=== PATIENT | female | born 1975 | race Hispanic/Latino ===

== ENCOUNTER 2019-08-20 10:42 | Emergency (ER) | payer BC ==
[2019-08-20] MEDS ORDERED: ONDANSETRON 4 MG/2 ML VIAL ONE (11:13)
[2019-08-20] MEDS ORDERED: MORPHINE 2 MG/ML SYR ONE (11:13)
[2019-08-20] MEDS ORDERED: FAMOTIDINE 20 MG/2 ML VIAL IV ONE (11:13)
[2019-08-20] MEDS ORDERED: NA CHLORIDE 0.9% 1,000 ML ONE (11:13)
[2019-08-20 11:28] LABS: Absolute Lymphocytes (CBC) 1.8 K/uL (0.7-4.9); Basophils % 0.9 % (0-1.3); Hematocrit 38.8 % (36.0-45.0); Lymphocytes % 20.4 % (15.3-44.8); RBC Red Blood Cell Count 4.15 M/uL (3.86-4.86)
[2019-08-20 11:40] LABS: Albumin 4.2 g/dL (3.4-5.0); Bilirubin Direct 0.1 mg/dL (0-0.2); Bilirubin Total 0.3 mg/dL (0.2-1.0); Potassium 3.9 mmol/L (3.5-5.1); Protein, Total 8.3 g/dL (6.4-8.2)
--- NOTE | 2019-08-20 11:51 | RAD REPORT ---
EXAM DESCRIPTION: CT - Stone Protocol - 08/20/2019 11:39 am CLINICAL HISTORY: Left-sided flank pain, left lower quadrant pain COMPARISON: None. TECHNIQUE: Axial 5 mm thick images were obtained without oral or IV contrast. The [id number] span s the entirety of the system including uppermost abdomen and lung bases. All CT scans are performed using dose optimization technique as appropriate and may include automated exposure control or mA/KV adjustment according to patient size. FINDINGS: Mild hydronephrosis is present secondary to a 6 millimeter proximal left ureter stone. Fro m a KUB projection the obstructing calculus is superimposed or closely approximated to the lateral ma rgin L3 transverse process. Patient has several 3-5 mm nonobstructing calyx calculi on the left. No r ight-sided hydronephrosis and no right-sided calculi. Remainder the left ureter is decompressed. Urin casey bladder is contracted. No bladder calculi seen. Patient has numerous pelvic floor phleboliths. No suspicious renal masses. Isodense masses and pyelonephritis are not excluded on a stone protocol CT scan. No significant adrenal finding. Imaged portions of the liver, spleen and pancreas show no suspicious findings on non-contrast imaging . No gallbladder or biliary tree abnormality identified. No suspicious bowel findings. Uterus is absent. Left ovary is not clearly defined and may be absent. Right ovary is prominent at approximately 3.7 cm. This is not outside of normal range. No hernia, mass or bulky lymphadenopathy noted. No free air, free fluid or inflammatory stranding. No significant bony abnormality. IMPRESSION: Mild left-sided hydronephrosis secondary to a proximal left ureter 6 mm stone. Patient h as additional 3-mm sized nonobstructing calyx calculi on the left. When viewed on a KUB projection the obstructing calculus is superimposed upon or closely approximated to the L3 transverse process. Isodense masses and pyelonephritis are not excluded on stone protocol technique.
[2019-08-20] MEDS ORDERED: CEFTRIAXONE/SWI 1gm 1 GM/10 ML SYR ONE (13:20)
[2019-08-20] MEDS ORDERED: MAGNESIUM SULFATE 1 gm IVPB 1 GM/100 ML BAG IV ONE (13:20)
[2019-08-20] MEDS ORDERED: TAMSULOSIN 0.4 MG SR CAP ONE (13:21)
--- NOTE | 2019-08-20 13:41 | ER ---
Nurse's Notes [facility] Name: Anushka Marshall Age: 44 yrs Sex: Female : 1975 Arrival Date: 08/20/2019 Time: 10:45 Bed 6 Private MD: Brandt Taylor B Diagnosis: Calculus of kidney and ureter-left Presentation: 08/20 10:58 Presenting complaint: Patient states: left low back pain radiating to LLQ, nausea, iw vomiting, chills this a.m, denies pain with urination, denies hx of kidney stones. Transition of care: patient was not received from another setting of care. Onset of symptoms was August 20, 2019. Risk Assessment: Do you want to hurt yourself or someone else? Patient reports no desire to harm self or others. Initial Sepsis Screen: Does the patient meet any 2 criteria? No. Patient's initial sepsis screen is negative. Does the patient have a suspected source of infection? No. Patient's initial sepsis screen is negative. Care prior to arrival: None. 10:58 Method Of Arrival: Wheelchair iw 10:58 Acuity: KEVIN 3 iw Historical: - Allergies: 10:59 No Known Allergies; iw - Home Meds: 10:59 None [Active]; iw - PMHx: 10:59 None; iw - PSHx: 10:59 Tubal ligation; Hysterectomy; iw - Social history:: Smoking status: . - Ebola Screening: : Patient negative for fever greater than or equal to 101.5 degrees Fahrenheit, and additional compatible Ebola Virus Disease symptoms Patient denies exposure to infectious person Patient denies travel to an Ebola-affected area in the 21 days before illness onset No symptoms or risks identified at this time. Screenin:05 Abuse screen: Denies threats or abuse. Denies injuries from another. Nutritional sv screening: No deficits noted. Tuberculosis screening: No symptoms or risk factors identified. Fall Risk None identified. Assessment: 11:05 General: Appears in no apparent distress. uncomfortable, well developed, Behavior is sv cooperative, anxious, restless. Pain: Complains of pain in posterior aspect of left lateral abdomen and anterior aspect of left lateral abdomen Pain currently is 10 out of 10 on a pain scale. Quality of pain is described as sharp, stabbing, Pain began 4 hours ago. Is continuous. Neuro: Level of Consciousness is awake, alert, obeys commands, Oriented to person, place, time, situation, Moves all extremities. Full function Gait is steady. Respiratory: Airway is patent Respiratory effort is even, unlabored, Respiratory pattern is regular, symmetrical. GI: Abdomen is flat, Reports nausea, vomiting. Derm: Skin is pink, warm \T\ dry. 12:00 Reassessment: Patient appears in no apparent distress at this time. Patient and/or sv family updated on plan of care and expected duration. Pain level reassessed. Patient is alert, oriented x 3, equal unlabored respirations, skin warm/dry/pink. Patient denies pain at this time. Patient states feeling better. Patient states symptoms have improved. 13:15 Reassessment: Patient appears in no apparent distress at this time. Patient and/or sv family updated on plan of care and expected duration. Pain level reassessed. Patient is alert, oriented x 3, equal unlabored respirations, skin warm/dry/pink. 14:22 Reassessment: Patient appears in no apparent distress at this time. Patient and/or sv family updated on plan of care and expected duration. Pain level reassessed. Patient is alert, oriented x 3, equal unlabored respirations, skin warm/dry/pink. Patient denies pain at this time. Patient states feeling better. Patient states symptoms have improved. Vital Signs: 11:00 Pulse 90; Resp 20; Pulse Ox 100% ; sv 12:45 BP 121 / 75; Pulse 79; Resp 16; Pulse Ox 98% ; sv 13:30 BP 132 / 87; Pulse 92; Resp 16; Pulse Ox 100% ; sv 14:22 BP 141 / 95; Pulse 87; Resp 17; Pulse Ox 97% ; sv ED Course: 10:45 Patient arrived in ED. am2 10:45 Brandt Taylor MD is Private Physician. am2 10:54 Mumtaz Plascencia PA is PHCP. cp 10:54 Tuan Ramos MD is Attending Physician. cp 10:58 Nciole Agarwal RN is Primary Nurse. sv 10:59 Triage completed. iw 10:59 Arm band placed on. sv 11:05 Patient has correct armband on for positive identification. Bed in low position. Call sv light in reach. Pulse ox on. NIBP on. Door closed. Warm blanket given. Head of bed elevated. 11:05 Inserted saline lock: 20 gauge in right antecubital area, using aseptic technique. sv Blood collected. Flushed right antecubital with 5 ml normal saline. 11:[address] via wheelchair. sv 12:43 Basic Metabolic Panel Sent. sv 12:43 CBC with Diff Sent. sv 12:43 Creatinine for Radiology Sent. sv 12:43 Hepatic Function Sent. sv 12:43 Lipase Sent. sv 12:44 CT Stone Protocol Sent. sv 13:39 Venecia Brasher MD is Referral Physician. cp 14:25 No provider procedures requiring assistance completed. IV discontinued, intact, sv bleeding controlled, No redness/swelling at site. Pressure dressing applied. Administered Medications: 11:20 Drug: Zofran 4 mg Route: IVP; Site: right antecubital; sv 12:00 Follow up: Response: No adverse reaction sv 11:20 Drug: NS 0.9% 1000 ml Route: IV; Rate: 100 ml/hr; Site: right antecubital; sv 11:21 Drug: Pepcid 20 mg Route: IVP; Site: right antecubital; sv 12:00 Follow up: Response: No adverse reaction sv 11:21 Drug: morphine 2 mg Route: IVP; Site: right antecubital; sv 12:00 Follow up: Response: No adverse reaction; Pain is decreased sv 13:27 Drug: Flomax 0.4 mg Route: PO; sg 14:21 Follow up: Response: No adverse reaction sv 13:27 Drug: Magnesium Sulfate 1 grams Route: IVPB; Infused Over: 20 mins; Site: right sg antecubital; 14:21 Follow up: Response: No adverse reaction; IV Status: Completed infusion; IV Intake: sv 100ml 13:27 Not Given (Other Intervention Used): Rocephin - (cefTRIAXone) 1 grams IVPB once over 30 sg mins; (mix in 50 mL NS) 13:27 Drug: Rocephin 1 grams Route: IV; Rate: calculated rate; Site: right antecubital; sg 13:30 Follow up: Response: No adverse reaction; IV Status: Completed infusion; IV Intake: 10mlsv Intake: 13:30 IV: 10ml; Total: 10ml. sv 14:21 IV: 100ml; Total: 110ml. sv Outcome: 13:40 Discharge ordered by . cp 14:25 Discharged to home ambulatory, with family. sv 14:25 Condition: stable 14:25 Condition: improved 14:25 Discharge instructions given to patient, Instructed on discharge instructions, follow up and referral plans. no drinking with medication, no driving heavy equipment, medication usage, increase fluids Demonstrated understanding of instructions, follow-up care, medications, Prescriptions given X 4. 14:25 Patient left the ED. sv Signatures: Nicole Agarwal RN RN sv Gay, Steven, RN RN sg Williams, Irene, RN RN Mumtaz Plascencia, PA PA Abbie Smith am2 Corrections: (The following items were deleted from the chart) 13:14 12:45 Pulse 79bpm; Resp 16bpm; Pulse Ox 98%; sv sv
--- NOTE | 2019-08-20 13:42 | EDPHYS ---
Physician Documentation [facility] Name: Anushka Marshall Age: 44 yrs Sex: Female : 1975 Arrival Date: 08/20/2019 Time: 10:45 Bed 6 Private MD: Brandt Taylor B ED Physician Tuan Ramos HPI: 08/20 11:05 This 44 yrs old Female presents to ER via Wheelchair with complaints of Flank cp Pain, Nausea. 11:05 The patient complains of pain in the left mid back. The pain radiates to the left side cp abdomen. Onset: The symptoms/episode began/occurred this morning. Associated signs and symptoms: Pertinent positives: nausea, vomiting, Pertinent negatives: diarrhea, dysuria, fever, pain radiating to the lower extremities. Severity of pain: in the emergency department the pain is unchanged despite home interventions. Historical: - Allergies: 10:59 No Known Allergies; iw - Home Meds: 10:59 None [Active]; iw - PMHx: 10:59 None; iw - PSHx: 10:59 Tubal ligation; Hysterectomy; iw - Social history:: Smoking status: . - Ebola Screening: : Patient negative for fever greater than or equal to 101.5 degrees Fahrenheit, and additional compatible Ebola Virus Disease symptoms Patient denies exposure to infectious person Patient denies travel to an Ebola-affected area in the 21 days before illness onset No symptoms or risks identified at this time. ROS: 11:06 Eyes: Negative for injury, pain, redness, and discharge. cp 11:06 Constitutional: Negative for body aches, chills, fever, poor PO intake. 11:06 ENT: Negative for drainage from ear(s), ear pain, sore throat, difficulty swallowing, difficulty handling secretions. 11:06 Cardiovascular: Negative for chest pain, edema, palpitations. 11:06 Respiratory: Negative for cough, shortness of breath, wheezing. 11:06 Abdomen/GI: Positive for nausea and vomiting, Negative for constipation, anorexia, black/tarry stool, rectal bleeding. 11:06 Back: Positive for flank pain, on the left. 11:06 : Negative for urinary symptoms. 11:06 Skin: Negative for rash. 11:06 Neuro: Negative for altered mental status, headache, syncope, weakness. 11:06 All other systems are negative. Exam: 11:08 Head/Face: Normocephalic, atraumatic. cp 11:08 Constitutional: The patient appears in no acute distress, alert, awake, non-toxic, well developed, well nourished, uncomfortable. 11:08 Eyes: Periorbital structures: appear normal, Conjunctiva: normal, no exudate, no injection, Sclera: no appreciated abnormality, Lids and lashes: appear normal, bilaterally. 11:08 ENT: External ear(s): are unremarkable, Nose: is normal, Mouth: Lips: moist, Oral mucosa: pink and intact, moist, Posterior pharynx: is normal, airway is patent, no erythema, no exudate. 11:08 Chest/axilla: Inspection: normal, Palpation: is normal, no crepitus, no tenderness. 11:08 Respiratory: the patient does not display signs of respiratory distress, Respirations: normal, no use of accessory muscles, no retractions, no splinting, no tachypnea, labored breathing, is not present, Breath sounds: are clear throughout, no decreased breath sounds, no stridor, no wheezing. 11:08 Abdomen/GI: Inspection: abdomen appears normal, Bowel sounds: active, all quadrants, Palpation: soft, in all quadrants, nontender, in all quadrants. 11:08 Back: CVA tenderness, is noted on the left. 11:08 Neuro: Orientation: to person, place \T\ time. Mentation: is normal, Motor: moves all fours, strength is normal, Sensation: is normal, Gait: is steady. Vital Signs: 11:00 Pulse 90; Resp 20; Pulse Ox 100% ; sv 12:45 BP 121 / 75; Pulse 79; Resp 16; Pulse Ox 98% ; sv 13:30 BP 132 / 87; Pulse 92; Resp 16; Pulse Ox 100% ; sv 14:22 BP 141 / 95; Pulse 87; Resp 17; Pulse Ox 97% ; sv MDM: 11:05 Patient medically screened. cp 11:30 Differential diagnosis: nephrolithiasis, pyelonephritis, UTI, diverticulitis, cp pancreatitis. 13:40 Data reviewed: vital signs, nurses notes, lab test result(s), radiologic studies, CT cp scan, and as a result, I will discharge patient. 13:40 Counseling: I had a detailed discussion with the patient and/or guardian regarding: the cp historical points, exam findings, and any diagnostic results supporting the discharge/admit diagnosis, radiology results, to return to the emergency department if symptoms worsen or persist or if there are any questions or concerns that arise at home. Response to treatment: the patient's symptoms have markedly improved after treatment. ED course: VSS. Pain markedly improved with meds. Will discharge to home for continued monitoring. 08/20 11:01 Order name: Basic Metabolic Panel 08/20 11:01 Order name: CBC with Diff 08/20 11:01 Order name: Creatinine for Radiology 08/20 11:01 Order name: Hepatic Function 08/20 11:01 Order name: Lipase 08/20 11:38 Order name: Creatinine (Radiology Only) EDCA 08/20 11:42 Order name: Basic Metabolic Panel [facility] 08/20 11:01 Order name: IV Saline Lock; Complete Time: 11:22 08/20 11:01 Order name: Labs collected and sent; Complete Time: 11:22 08/20 11:01 Order name: CT Stone Protocol 08/20 11:42 Order name: Liver (Hepatic) Function EDCA 08/20 11:43 Order name: Lipase [facility]CA 08/20 11:43 Order name: CBC with Automated Diff EDMS Administered Medications: 11:20 Drug: Zofran 4 mg Route: IVP; Site: right antecubital; sv 12:00 Follow up: Response: No adverse reaction sv 11:20 Drug: NS 0.9% 1000 ml Route: IV; Rate: 100 ml/hr; Site: right antecubital; sv 11:21 Drug: Pepcid 20 mg Route: IVP; Site: right antecubital; sv 12:00 Follow up: Response: No adverse reaction sv 11:21 Drug: morphine 2 mg Route: IVP; Site: right antecubital; sv 12:00 Follow up: Response: No adverse reaction; Pain is decreased sv 13:27 Drug: Flomax 0.4 mg Route: PO; sg 14:21 Follow up: Response: No adverse reaction sv 13:27 Drug: Magnesium Sulfate 1 grams Route: IVPB; Infused Over: 20 mins; Site: right sg antecubital; 14:21 Follow up: Response: No adverse reaction; IV Status: Completed infusion; IV Intake: sv 100ml 13:27 Not Given (Other Intervention Used): Rocephin - (cefTRIAXone) 1 grams IVPB once over 30 sg mins; (mix in 50 mL NS) 13:27 Drug: Rocephin 1 grams Route: IV; Rate: calculated rate; Site: right antecubital; sg 13:30 Follow up: Response: No adverse reaction; IV Status: Completed infusion; IV Intake: 10mlsv Disposition: 08/21 07:56 Co-signature as Attending Physician, Tuan Ramos MD I agree with the assessment and kdr plan of care. Disposition: 08/20/19 13:40 Discharged to Home. Impression: Calculus of kidney and ureter - left. - Condition is Stable. - Discharge Instructions: Kidney Stones. - Prescriptions for Tylenol- Codeine #3 300-30 mg Oral Tablet - take 2 tablets by ORAL route every 6 hours As needed; 20 tablet. Zofran 4 mg Oral Tablet - take 1 tablet by ORAL route every 12 hours As needed; 20 tablet. Flomax 0.4 mg Oral Capsule, Sust. Release 24 hr - take 1 capsule by ORAL route once daily As needed 1/2 hour following the same meal each day; 5 capsule. Cipro 500 mg Oral Tablet - take 1 tablet by ORAL route every 12 hours for 7 days; 14 tablet. - Work release form, Medication Reconciliation Form, Thank You Letter, Antibiotic Education, Prescription Opioid Use form. - Follow up: Venecia Brasher MD; When: 1 - 2 days; Reason: continued pain. - Problem is new. - Symptoms have improved. Signatures: Dispatcher [employer] Nicole Harper RN RN Daniel Copeland RN RN sg Rittger, Kevin, MD MD [facility] Isaura Shultz RN RN iw Page, Corey, PA PA cp Corrections: (The following items were deleted from the chart) 08/20 11:07 11:00 IV Saline Lock ordered. [facility] 11:07 11:00 Labs collected and sent ordered. [facility] 14:25 13:40 08/20/2019 13:40 Discharged to Home. Impression: Calculus of kidney and ureter - sv left. Condition is Stable. Forms are Medication Reconciliation Form, Thank You Letter, Antibiotic Education, Prescription Opioid Use. Follow up: Venecia Brasher; When: 1 - 2 days; Reason: continued pain. Problem is new. Symptoms have improved. cp
[2019-08-20 16:06] VITALS: BP 141/95; O2SAT 97
== END 2019-08-20 14:25 | disposition home or self-care (01) ==
LOC: ER 10:42
DX: N20.0 Calculus of kidney (principal); N20.1 Calculus of ureter
CPT/HCPCS: 96365; 85025; 80048; 36415; 80076; 83690; 76377; 74176; 96375; 99284; J3475; J2270; J0696; J7030; J2405

== ENCOUNTER 2020-12-26 09:01 | Emergency (ER) | payer BC ==
--- NOTE | 2020-12-26 09:50 | RAD REPORT ---
EXAM DESCRIPTION: RAD - Chest Single View - 12/26/2020 9:37 am CLINICAL HISTORY: COUGH Chest pain. COMPARISON: Abdomen 1 View (KUB) dated 09/07/2019; Abdomen 1 View (KUB) dated 09/01/2019; Chest Pa And Lat (2 Views) dated 08/26/2019 FINDINGS: Portable technique limits examination quality. The lungs are grossly clear. The heart is normal in size. No displaced fractures. IMPRESSION: No acute intrathoracic process suspected.
--- NOTE | 2020-12-26 10:47 | EDPHYS ---
Physician Documentation [facility] Name: Anushka Rogel Age: 45 yrs Sex: Female : 1975 Arrival Date: 12/26/2020 Time: 09:04 Bed 14 Private MD: ED Physician Dean Crisostomo HPI: 12/26 11:20 This 45 yrs old Female presents to ER via Ambulatory with complaints of Covid kb + Back/Side Pain, Cough. 11:20 The patient or guardian reports cough, that is intermittent, described as moderate. kb Onset: The symptoms/episode began/occurred 6 day(s) ago. Severity of symptoms: At their worst the symptoms were moderate, in the emergency department the symptoms are unchanged. Modifying factors: The symptoms are alleviated by nothing, the symptoms are aggravated by nothing. Associated signs and symptoms: The patient has no apparent associated signs or symptoms. The patient has not experienced similar symptoms in the past. The patient has not recently seen a physician. Pt reports she tested positive for covid on Saturday. States fever and chills have subsided, but cough has gotten worse. 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 - Social history:: Smoking status: Patient denies any tobacco usage or history of. ROS: 11:20 Constitutional: Negative for fever, chills, and weight loss, Cardiovascular: Negative kb for chest pain, palpitations, and edema, Abdomen/GI: Negative for abdominal pain, nausea, vomiting, diarrhea, and constipation, Back: Negative for injury and pain, MS/Extremity: Negative for injury and deformity, Skin: Negative for injury, rash, and discoloration, Neuro: Negative for headache, weakness, numbness, tingling, and seizure. 11:20 Respiratory: Positive for cough, Negative for dyspnea on exertion, hemoptysis, orthopnea, pleurisy, shortness of breath, sputum production, wheezing. Exam: 11:20 Constitutional: This is a well developed, well nourished patient who is awake, alert, kb and in no acute distress. Head/Face: Normocephalic, atraumatic. Chest/axilla: Normal chest wall appearance and motion. Nontender with no deformity. No lesions are appreciated. Cardiovascular: Regular rate and rhythm with a normal S1 and S2. No gallops, murmurs, or rubs. Normal PMI, no JVD. No pulse deficits. Respiratory: Lungs have equal breath sounds bilaterally, clear to auscultation and percussion. No rales, rhonchi or wheezes noted. No increased work of breathing, no retractions or nasal flaring. Abdomen/GI: Soft, non-tender, with normal bowel sounds. No distension or tympany. No guarding or rebound. No evidence of tenderness throughout. Back: No spinal tenderness. No costovertebral tenderness. Full range of motion. Skin: Warm, dry with normal turgor. Normal color with no rashes, no lesions, and no evidence of cellulitis. MS/ Extremity: Pulses equal, no cyanosis. Neurovascular intact. Full, normal range of motion. Neuro: Awake and alert, GCS 15, oriented to person, place, time, and situation. Cranial nerves II-XII grossly intact. Motor strength 5/5 in all extremities. Sensory grossly intact. Cerebellar exam normal. Normal gait. Vital Signs: 09:19 Pulse 100; Resp 16; Temp 98.8; Pulse Ox 97% on R/A; Weight 77.11 kg; Height 5 ft. 2 in. hb (157.48 cm); Pain 6/10; 09:19 Body Mass Index 31.09 (77.11 kg, 157.48 cm) hb MDM: 09:21 Patient medically screened. kb 10:44 Data reviewed: vital signs, nurses notes. Data interpreted: Pulse oximetry: on room air kb is 97 %. Interpretation: normal. Counseling: I had a detailed discussion with the patient and/or guardian regarding: the historical points, exam findings, and any diagnostic results supporting the discharge/admit diagnosis, lab results, radiology results, the need for outpatient follow up, a family practitioner, to return to the emergency department if symptoms worsen or persist or if there are any questions or concerns that arise at home. 12/26 10:33 Order name: Urine Dipstick--Ancillary (enter results) bd 12/26 09:22 Order name: Chest Single View XRAY kb 12/26 09:22 Order name: Urine Dipstick-Ancillary (obtain specimen); Complete Time: 09:43 kb 12/26 09:52 Order name: RAD; Complete Time: 09:53 EDMS Administered Medications: No medications were administered Disposition: 14:34 Co-signature as Attending Physician, Dean Crisostomo MD. rn Disposition: 12/26/20 10:46 Discharged to Home. Impression: Coronavirus infection, unspecified. - Condition is Stable. - Discharge Instructions: Viral Respiratory Infection, [id number], COVID-19. - Medication Reconciliation Form, Thank You Letter, Antibiotic Education, Prescription Opioid Use form. - Follow up: Emergency Department; When: As needed; Reason: Worsening of condition. Follow up: Private Physician; When: 2 - 3 days; Reason: Recheck today's complaints, Continuance of care, Re-evaluation by your physician. Signatures: Dispatcher [employer] EDMS Jaz Arreguin, CIARA-Angela CHIEF NURSE-Dean Lr MD MD rn Smirch, Shelby, RN RN ss Baxter, Heather, RN RN Corrections: (The following items were deleted from the chart) 10:59 10:46 12/26/2020 10:46 Discharged to Home. Impression: Coronavirus infection, ss unspecified. Condition is Stable. Forms are Medication Reconciliation Form, Thank You Letter, Antibiotic Education, Prescription Opioid Use. Follow up: Emergency Department; When: As needed; Reason: Worsening of condition. Follow up: Private Physician; When: 2 - 3 days; Reason: Recheck today's complaints, Continuance of care, Re-evaluation by your physician. kb 11:20 11:20 Constitutional: This is a well developed, well nourished patient who is awake, kb alert, and in no acute distress. Head/Face: Normocephalic, atraumatic. Chest/axilla: Normal chest wall appearance and motion. Nontender with no deformity. No lesions are appreciated. Cardiovascular: Regular rate and rhythm with a normal S1 and S2. No gallops, murmurs, or rubs. Normal PMI, no JVD. No pulse deficits. Respiratory: Lungs have equal breath sounds bilaterally, clear to auscultation and percussion. No rales, rhonchi or wheezes noted. No increased work of breathing, no retractions or nasal flaring. Abdomen/GI: Soft, non-tender, with normal bowel sounds. No distension or tympany. No guarding or rebound. No evidence of tenderness throughout. Skin: Warm, dry with normal turgor. Normal color with no rashes, no lesions, and no evidence of cellulitis. MS/ Extremity: Pulses equal, no cyanosis. Neurovascular intact. Full, normal range of motion. Neuro: Awake and alert, GCS 15, oriented to person, place, time, and situation. Cranial nerves II-XII grossly intact. Motor strength 5/5 in all extremities. Sensory grossly intact. Cerebellar exam normal. Normal gait. kb
--- NOTE | 2020-12-26 10:47 | ER ---
Nurse's Notes [facility] Name: Anushka Rogel Age: 45 yrs Sex: Female : 1975 Arrival Date: 12/26/2020 Time: 09:04 Bed 14 Private MD: Diagnosis: Coronavirus infection, unspecified Presentation: 12/26 09:19 Chief complaint: COVID + last Saturday, reports worsening cough and back pain. hb Coronavirus screen: Client reports previous positive COVID test result. Ebola Screen: No symptoms or risks identified at this time. Initial Sepsis Screen: Does the patient meet any 2 criteria? No. Patient's initial sepsis screen is negative. Does the patient have a suspected source of infection? No. Patient's initial sepsis screen is negative. Risk Assessment: Do you want to hurt yourself or someone else? Patient reports no desire to harm self or others. Onset of symptoms was December 21, 2020. 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 - Social history:: Smoking status: Patient denies any tobacco usage or history of. Screenin:25 Abuse screen: Denies threats or abuse. Nutritional screening: No deficits noted. tw2 Tuberculosis screening: No symptoms or risk factors identified. Fall Risk None identified. Assessment: 09:45 General: Appears in no apparent distress. comfortable, Behavior is calm, cooperative. ss Pain: Complains of pain in back Pain currently is 6 out of 10 on a pain scale. Neuro: Level of Consciousness is awake, alert, obeys commands, Oriented to person, place, time, situation, Passenger Relations Representative are equal bilaterally Moves all extremities. Full function Speech is normal, Facial symmetry appears normal. Cardiovascular: Capillary refill < 3 seconds is brisk in bilateral fingers. Respiratory: Airway is patent Respiratory effort is even, unlabored, Respiratory pattern is regular, symmetrical. Respiratory: Reports cough that is hacking, worse since last week. GI: No signs and/or symptoms were reported involving the gastrointestinal system. Patient currently denies abdominal pain, diarrhea, nausea, vomiting. : No signs and/or symptoms were reported regarding the genitourinary system. EENT: Nares are clear. Derm: Skin is intact, is healthy with good turgor, Skin is dry, Skin is pink, warm \T\ dry. normal. Musculoskeletal: Circulation, motion, and sensation intact. Range of motion: intact in all extremities, Swelling absent. 10:59 Reassessment: Patient appears in no apparent distress at this time. Patient and/or ss family updated on plan of care and expected duration. Pain level reassessed. Vital Signs: 09:19 Pulse 100; Resp 16; Temp 98.8; Pulse Ox 97% on R/A; Weight 77.11 kg; Height 5 ft. 2 in. hb (157.48 cm); Pain 610; 09:19 Body Mass Index 31.09 (77.11 kg, 157.48 cm) hb ED Course: 09:04 Patient arrived in ED. ds1 09:21 Triage completed. hb 09:21 [facility]reguin [facility]-C [facility]. kb 09:21 Dean Crisostomo MD is Attending Physician. kb 09:21 Arm band placed on. hb 09:22 Bed in low position. Call light in reach. Pulse ox on. NIBP on. tw2 09:38 Tiffanie Oneal, DEENA is Primary Nurse. ss 09:45 Urine collected: clean catch specimen, clear. ss 10:58 No provider procedures requiring assistance completed. Patient did not have IV access ss during this emergency room visit. Administered Medications: No medications were administered Outcome: 10:46 Discharge ordered by . kb 10:58 Discharged to home ambulatory. ss 10:58 Condition: good 10:58 Discharge instructions given to patient, Instructed on discharge instructions, follow up and referral plans. Demonstrated understanding of instructions, follow-up care. 10:59 Patient left the ED. ss Signatures: Jaz Arreguin FNP-C FNP-Lupe Burroughs ds1 Tiffanie Oneal, DEENA SHAFFER Gabriela Arce RN RN Chloe Sanders RN RN tw2
[2020-12-26 11:03] VITALS: TEMP 98.8; O2SAT 97
[2020-12-26 12:34] LABS: Urine Blood TRACE (NEG); Urine Glucose NEGATIVE (NEG); Urine Protein 2+ (NEG); Urine Specific Gravity 1.025 (1.005-1.030); Urine pH 6.5 (5.0-7.0)
== END 2020-12-26 10:59 | disposition home or self-care (01) ==
LOC: ER 09:01
DX: U07.1 COVID-19 (principal)
CPT/HCPCS: 71045; 81003; 99283

== ENCOUNTER 2021-01-15 16:48 | Emergency (ER) | payer BC ==
[2021-01-15 19:03] LABS: Urine Blood 3+ (NEG); Urine Glucose NEGATIVE (NEG); Urine Protein 2+ (NEG); Urine pH 5.5 (5.0-7.0)
[2021-01-15 19:32] LABS: Urine Bacteria <20 /HPF (<20); Urine RBC TNTC /HPF (NONE SEEN)
[2021-01-15 19:33] LABS: Absolute Lymphocytes (CBC) 1.8 K/uL (0.7-4.9); Basophils % 0.6 % (0-1.3); Hematocrit 35.1 % (36.0-45.0); Lymphocytes % 18.8 % (15.3-44.8); MPV 8.7 fL (7.6-11.3); RBC Red Blood Cell Count 3.77 M/uL (3.86-4.86)
[2021-01-15] MEDS ORDERED: CEFTRIAXONE/SWI 1gm 1 GM/10 ML SYR ONE (19:40)
[2021-01-15 19:50] LABS: ALT/SGPT 118 U/L (12-78); AST/SGOT 34 U/L (15-37); Albumin 3.5 g/dL (3.4-5.0); Alkaline Phosphatase 76 U/L (45-117); BUN Blood Urea Nitrogen 16 mg/dL (7-18); Bicarbonate 25 mmol/L (21-32); Bilirubin Direct < 0.1 mg/dL (0-0.2); Bilirubin Total 0.2 mg/dL (0.2-1.0); Glucose Level 107 mg/dL (74-106); Lipase 295 U/L (73-393); Potassium 3.6 mmol/L (3.5-5.1); Protein, Total 7.5 g/dL (6.4-8.2); Sodium Level 141 mmol/L (136-145)
--- NOTE | 2021-01-15 20:09 | RAD REPORT ---
EXAM DESCRIPTION: CT - Stone Protocol - 01/15/2021 7:33 pm CLINICAL HISTORY: Abdominal pain. Hematuria COMPARISON: 2018 TECHNIQUE: Computed axial tomography of the abdomen pelvis was obtained without oral or IV contrast. Lack of IV and oral contrast limits evaluation of solid organs, bowel, and vessels. Coronal reformat brissa images were obtained and reviewed. All CT scans are performed using dose optimization technique as appropriate and may include automated exposure control or mA/KV adjustment according to patient size. FINDINGS: Tiny right renal calculus. No hydronephrosis. Multiple small left renal calculi. No hydronephrosis. A ureteral calculus is not seen. A bladder calc ulus is not visualized. The liver, spleen, pancreas and adrenals appear grossly normal There is no evidence of diverticulitis. The appendix appears normal. Hysterectomy IMPRESSION: Multiple small nonobstructing left renal calculi. Tiny nonobstructing right renal calculus
--- NOTE | 2021-01-15 20:15 | ER ---
Nurse's Notes [facility] Name: Anushka Rogel Age: 45 yrs Sex: Female : 1975 Arrival Date: 01/15/2021 Time: 16:53 Bed 24 Private MD: Diagnosis: Urinary tract infection, site not specified;Dysuria;Hematuria, unspecified Presentation: 01/15 17:29 Chief complaint: Patient states: L back pain, bloody urine with clots in it, dysuria, ll1 and urinary frequency for 1 day. No fever. Coronavirus screen: Client denies travel out of the [place] in the last 14 days. At this time, the client does not indicate any symptoms associated with coronavirus-19. Ebola Screen: Patient denies travel to an Ebola-affected area in the 21 days before illness onset. Initial Sepsis Screen: Does the patient meet any 2 criteria? HR > 90 bpm. No. Patient's initial sepsis screen is negative. Does the patient have a suspected source of infection? Yes: Dysuria/Frequency/Urgency/UTI. Risk Assessment: Do you want to hurt yourself or someone else? Patient reports no desire to harm self or others. Onset of symptoms was January 15, 2021. 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 - Social history:: Smoking status: Patient denies any tobacco usage or history of. Screenin:11 Abuse screen: Denies threats or abuse. Denies injuries from another. Nutritional mg2 screening: No deficits noted. Tuberculosis screening: No symptoms or risk factors identified. Fall Risk None identified. Assessment: 19:10 General: Appears in no apparent distress. comfortable, Behavior is calm, cooperative. mg2 Pain: Complains of pain in abdomen Pain radiates to back. Neuro: Level of Consciousness is awake, alert, obeys commands, Oriented to person, place, time, situation. Cardiovascular: Capillary refill < 3 seconds Patient's skin is warm and dry. Respiratory: Airway is patent Respiratory effort is even, unlabored, Respiratory pattern is regular, symmetrical. GI: No signs and/or symptoms were reported involving the gastrointestinal system. : Reports pain lower quadrant(s) in lower back. : Reports discharge, bloody. EENT: No signs and/or symptoms were reported regarding the EENT system. Derm: Skin is intact, is healthy with good turgor, Skin is pink, warm \T\ dry. normal. Musculoskeletal: Circulation, motion, and sensation intact. Capillary refill < 3 seconds. 19:27 Reassessment: sent to ct scan via stretcher. mg2 20:21 Reassessment: Patient appears in no apparent distress at this time. Patient denies pain mg2 at this time. Patient states feeling better. Patient states symptoms have improved. Vital Signs: 17:29 BP 150 / 98; Pulse 99; Resp 17; Temp 98.4; Pulse Ox 99% ; Weight 75.75 kg; Height 5 ft. ll1 2 in. (157.48 cm); Pain 5/10; 19:26 BP 124 / 79; Pulse 88; Resp 18; Pulse Ox 100% ; mg2 20:21 BP 120 / 80; Pulse 80; Resp 18; Temp 98; Pulse Ox 100% on R/A; Pain 0/10; mg2 17:29 Body Mass Index 30.54 (75.75 kg, 157.48 cm) ll1 ED Course: 16:53 Patient arrived in ED. ds1 17:31 Triage completed. ll1 17:32 Arm band placed on. ll1 19:03 Martir Gonzalez, DEENA is Primary Nurse. mg2 19:05 Wade Rivera PA is PHCP. [facility] 19:05 Anselmo Grimm MD is Attending Physician. jmm 19:11 Patient has correct armband on for positive identification. mg2 19:11 No provider procedures requiring assistance completed. mg2 19:15 Inserted saline lock: 20 gauge in right antecubital area, using aseptic technique. mg2 Blood collected. 20:21 IV discontinued, intact, bleeding controlled, No redness/swelling at site. Pressure mg2 dressing applied. Administered Medications: 19:25 Drug: Rocephin - (cefTRIAXone) 1 grams Route: IVPB; Infused Over: 30 mins; Site: right mg2 antecubital; 20:16 Follow up: Response: No adverse reaction; IV Status: Completed infusion mg2 Outcome: 20:15 Discharge ordered by MD. jmm 20:21 Discharged to home ambulatory. mg2 20:21 Condition: stable 20:21 Discharge instructions given to patient, Instructed on discharge instructions, follow up and referral plans. medication usage, Demonstrated understanding of instructions, follow-up care, medications, Prescriptions given X 1. 20:21 Patient left the ED. mg2 Signatures: Wade Rivera PA PA jmm Sanford, Demi ds1 Martir Gonzalez RN RN mg2 Joseline Christensen RN RN ll1
--- NOTE | 2021-01-15 20:15 | EDPHYS ---
Physician Documentation [facility] Name: Anushka Rogel Age: 45 yrs Sex: Female : 1975 Arrival Date: 01/15/2021 Time: 16:53 Bed 24 Private MD: ED Physician Anselmo Grimm HPI: 01/15 19:17 This 45 yrs old Female presents to ER via Ambulatory with complaints of jmm Urinary Frequency, Blood In Urine. 19:17 The patient complains of pain in the left flank. Onset: The symptoms/episode jmm began/occurred gradually, 1 day(s) ago. Modifying factors: The symptoms are alleviated by nothing. the symptoms are aggravated by nothing. Associated signs and symptoms: Pertinent positives: dysuria, hematuria. The patient has experienced a previous episode. This is a 45 year old female with no chronic medical conditions that presents to the ED with complaints of left flank pain beginning around 1 day ago along with hematuria and painful urination. DIRECTOR LIFE: 20:21 LMP N/A - Hysterectomy mg2 Historical: - Allergies: 17:31 No Known Allergies; ll1 - PSHx: 17:31 Tubal ligation; Hysterectomy; ll1 - Immunization history:: Flu vaccine is up to date. - Social history:: Smoking status: Patient denies any tobacco usage or history of. ROS: 19:17 Constitutional: Negative for fever, chills, and weight loss, Cardiovascular: Negative jmm for chest pain, palpitations, and edema, Respiratory: Negative for shortness of breath, cough, wheezing, and pleuritic chest pain. 19:17 Abdomen/GI: Positive for abdominal pain. 19:17 : Positive for urinary symptoms, hematuria. 19:17 All other systems are negative. Exam: 19:17 Constitutional: This is a well developed, well nourished patient who is awake, alert, jmm and in no acute distress. Head/Face: atraumatic. Eyes: EOMI, no conjunctival erythema appreciated ENT: Moist Mucus Membranes Neck: Trachea midline, Supple Chest/axilla: Normal chest wall appearance and motion. Cardiovascular: Regular rate and rhythm. No edema appreciated Respiratory: Normal respirations, no respiratory distress appreciated Abdomen/GI: Non distended, soft 19:17 Skin: General appearance color normal MS/ Extremity: Moves all extremities, no obvious deformities appreciated, no edema noted to the lower extremities Neuro: Awake and alert, normal gait Psych: Behavior is normal, Mood is normal, Patient is cooperative and pleasant 19:17 Back: CVA tenderness, that is mild, is noted on the right. Vital Signs: 17:29 BP 150 / 98; Pulse 99; Resp 17; Temp 98.4; Pulse Ox 99% ; Weight 75.75 kg; Height 5 ft. ll1 2 in. (157.48 cm); Pain 5/10; 19:26 BP 124 / 79; Pulse 88; Resp 18; Pulse Ox 100% ; mg2 20:21 BP 120 / 80; Pulse 80; Resp 18; Temp 98; Pulse Ox 100% on R/A; Pain 0/10; mg2 17:29 Body Mass Index 30.54 (75.75 kg, 157.48 cm) ll1 MDM: 19:13 Patient medically screened. [facility] 20:12 Data reviewed: vital signs, nurses notes. Counseling: I had a detailed discussion with joan the patient and/or guardian regarding: the historical points, exam findings, and any diagnostic results supporting the discharge/admit diagnosis, lab results, radiology results, the need for outpatient follow up, to return to the emergency department if symptoms worsen or persist or if there are any questions or concerns that arise at home. ED course: Patient is alert and non toxic in appearance in the ED. No signs of resp distress. No signs of sepsis appreciated. Patient advised to follow up with pcp and otherwise given strict return precautions. Patient understood and agrees with the plan of care. . 01/15 18:53 Order name: Urine Microscopic Only 01/15 18:54 Order name: Urine Dipstick--Ancillary (enter results) [facility] 01/15 18:54 Order name: Urine --Ancillary (enter results) [facility] 01/15 19:04 Order name: Urine --Ancillary; Complete Time: 19:15 [facility] 01/15 19:04 Order name: Urine Dipstick-Ancillary; Complete Time: 19:15 [facility] 01/15 19:14 Order name: Basic Metabolic Panel [facility] 01/15 19:14 Order name: CBC with Diff [facility] 01/15 19:14 Order name: Hepatic Function [facility] 01/15 19:14 Order name: Lipase [facility] 01/15 19:32 Order name: Urine Microscopic Only; Complete Time: 19:34 [facility] 01/15 19:46 Order name: CBC with Automated Diff; Complete Time: 20:09 [facility] 01/15 19:50 Order name: Basic Metabolic Panel; Complete Time: 20:10 [facility] 01/15 19:50 Order name: Liver (Hepatic) Function; Complete Time: 20:10 [facility] 01/15 19:50 Order name: Lipase; Complete Time: 20:10 [facility] 01/15 19:14 Order name: IV Saline Lock; Complete Time: 19:21 [facility] 01/15 19:14 Order name: Labs collected and sent; Complete Time: 19:21 [facility] 01/15 19:14 Order name: CT Stone Protocol [facility] 01/15 20:10 Order name: CT; Complete Time: 20:11 EDMS Administered Medications: 19:25 Drug: Rocephin - (cefTRIAXone) 1 grams Route: IVPB; Infused Over: 30 mins; Site: right mg2 antecubital; 20:16 Follow up: Response: No adverse reaction; IV Status: Completed infusion mg2 Disposition: 01/15/21 20:15 Discharged to Home. Impression: Urinary tract infection, site not specified, Dysuria, Hematuria, unspecified. - Condition is Stable. - Discharge Instructions: Dysuria, Hematuria, Adult, Urinary Tract Infection, Adult. - Prescriptions for Cephalexin 500 mg Oral Capsule - take 1 capsule by ORAL route every 8 hours for 10 days; 30 capsule. - Medication Reconciliation Form, Thank You Letter, Antibiotic Education, Prescription Opioid Use form. - Follow up: Private Physician; When: 2 - 3 days; Reason: Recheck today's complaints, Continuance of care, Re-evaluation by your physician. Addendum: 01/20/2021 19:23 Co-signature as Attending Physician, Anselmo Grimm MD I agree with the assessment and t w4 plan of care. Signatures: Dispatcher [employer] [facility] Wade Rivera PA PA jmm Wadley, Terrence, MD MD tw4 Martir Gonzalez RN RN mg2 Joseline Christensen RN RN ll1 Corrections: (The following items were deleted from the chart) 01/15 20:21 20:15 01/15/2021 20:15 Discharged to Home. Impression: Urinary tract infection, site mg2 not specified; Dysuria; Hematuria, unspecified. Condition is Stable. Forms are Medication Reconciliation Form, Thank You Letter, Antibiotic Education, Prescription Opioid Use. Follow up: Private Physician; When: 2 - 3 days; Reason: Recheck today's complaints, Continuance of care, Re-evaluation by your physician. joan
[2021-01-15 20:27] VITALS: O2SAT 100
[2021-01-15 20:29] VITALS: BP 120/80; TEMP 98
== END 2021-01-15 20:21 | disposition home or self-care (01) ==
LOC: ER 16:48
DX: N39.0 Urinary tract infection, site not specified (principal); R31.9 Hematuria, unspecified
CPT/HCPCS: 96365; 87088; 85025; 87086; 80048; 36415; 81025; 80076; 83690; 76377; 74176; 99284; J0696; 81003; 81015

== ENCOUNTER 2021-12-21 12:20 | Emergency (ER) | payer BC ==
--- OUTSIDE RECORDS SUMMARY | 2021-12-21 12:22 | XMS REPORT | Continuity of Care Document ---
:1975 Author Organization [facility] t Address [address] [place] [address] Care Team Providers Name Role Phone Pcp, Does Not Have A Primary Care Physician Nurse, Polynda Immunization Attending Clinician Unavailable Mark Beasley DO Attending Clinician Problems This patient has no known problems. Allergies, Adverse Reactions, Alerts This patient has no known allergies or adverse reactions. Social History Social Habit Start Date Stop Date Quantity Comments Source Sex Assigned At [address] 1975 [facility] 00:00:00 00:00:00 [facility] Smoking Status Start Date Stop Date Source Unknown if ever smoked [facility] Medications This patient has no known medications. Immunizations Ordered Filled Immunization Date Status Comments Sourc e Immunization Name Name SARS-COV-2 COVID-2021-10-16 Completed Unive rs[facility] of PFIZER VACCINE 00:00:00 [facility] SARS-COV-2 COVID-19 2021-03-14 Completed Unive rsity of PFIZER VACCINE 00:00:00 [facility] SARS-COV-2 COVID-19 2021-02-21 Completed Unive rsity of PFIZER VACCINE 00:00:00 [facility] Procedures Procedure Date / Time Performed Performing Clinician Na chi SARS-COV-2 COVID-19 2021-10-16 15:27:18 Doctor Unassigned, No [facility] [place] VACC[facility],0.3ML,IM Name [facility] (PFIZER) Encounters Start End Encounter Admission Attending Care Care Encounter Source Date/Time Date/Time Type Type Clinicians Facility Department ID 2021-10-16 2021-10-16 Imm/Inj Nurse, Julee Pob Immunization [facility] [id number] [facility] 09:01:19 09:01:32 Visit Santosh Beasley [id number] ity HAY [id number] Amandeep zaragoza PROFESSIO [id number] [facility] [address] Results This patient has no known results.
[2021-12-21] MEDS ORDERED: MORPHINE 4 MG/ML SYR ONE (12:59)
[2021-12-21] MEDS ORDERED: ONDANSETRON 4 MG/2 ML VIAL ONE (13:00)
[2021-12-21] MEDS ORDERED: NA CHLORIDE 0.9% 1,000 ML ONE (13:00)
[2021-12-21 13:02] LABS: Hematocrit 41.8 % (36.0-45.0); Lymphocytes % 33.3 % (15.3-44.8); MPV 8.5 fL (7.6-11.3); RBC Red Blood Cell Count 4.47 M/uL (3.86-4.86)
[2021-12-21 13:22] LABS: ALT/SGPT 46 U/L (12-78); AST/SGOT 26 U/L (15-37); Albumin 4.2 g/dL (3.4-5.0); Alkaline Phosphatase 64 U/L (45-117); BUN Blood Urea Nitrogen 18 mg/dL (7-18); Bicarbonate 25 mmol/L (21-32); Bilirubin Direct < 0.1 mg/dL (0-0.2); Bilirubin Total 0.5 mg/dL (0.2-1.0); Glucose Level 101 mg/dL (74-106); Lipase 151 U/L (73-393); Potassium 3.6 mmol/L (3.5-5.1); Protein, Total 8.6 g/dL (6.4-8.2); Sodium Level 138 mmol/L (136-145)
[2021-12-21 14:06] LABS: SARS-COV-2 RT PCR NEGATIVE (NEGATIVE)
[2021-12-21 14:08] LABS: Urine Blood 3+ (Negative); Urine Glucose Negative (Negative); Urine Protein 1+ (Negative)
--- NOTE | 2021-12-21 14:50 | RAD REPORT ---
EXAM DESCRIPTION: CT - Stone Protocol - 12/21/2021 2:35 pm CLINICAL HISTORY: Flank pain. left flank pain COMPARISON: Stone Protocol dated 01/15/2021 TECHNIQUE: Axial images were obtained without oral or IV contrast. Lack of contrast limits solid org an and vascular assessment. The [id number] spans the entirety of the system partially obscuring uppermost abdomen and lung bases. Coronal reformatted images were obtained and reviewed. All CT scans are performed using dose optimization technique as appropriate and may include automated exposure control or mA/KV adjustment according to patient size. FINDINGS: The lower lung perez are clear. Imaged portions of the liver and spleen show no suspicious findings on non-contrast imaging. The panc reas and adrenal glands are normal. No pathologic lymphadenopathy in the abdomen or pelvis. 5 mm stone is present proximal left ureter resulting in mild left hydronephrosis. Several additional left renal calculi are seen. No right-sided stone or hydronephrosis evident. No bowel obstruction, free air, intra-abdominal free fluid or abscess. Trace pelvic free fluid. Kyra l appendix noted. No significant bony abnormality. IMPRESSION: 5 mm stone proximal left ureter resulting in mild left hydronephrosis. Additional left nephrolithiasis.
--- NOTE | 2021-12-21 16:08 | ER ---
Nurse's Notes [facility] Name: Anushka Rogel Age: 46 yrs Sex: Female : 1975 Arrival Date: 12/21/2021 Time: 12:23 Bed 28 Private MD: Diagnosis: Calculus of ureter Presentation: 12/21 12:31 Chief complaint: Patient states: Pt presents to ed via pov for c/o left flank pain and ab2 n/v. Pt denies any urinary symptoms. Coronavirus screen: Vaccine status: Patient reports receiving the 2nd dose of the covid vaccine. Client denies travel out of the [place] in the last 14 days. At this time, the client does not indicate any symptoms associated with coronavirus-19. Ebola Screen: Patient negative for fever greater than or equal to 101.5 degrees Fahrenheit, and additional compatible Ebola Virus Disease symptoms Patient denies exposure to infectious person. Patient denies travel to an Ebola-affected area in the 21 days before illness onset. No symptoms or risks identified at this time. Initial Sepsis Screen: Does the patient meet any 2 criteria? No. Patient's initial sepsis screen is negative. Does the patient have a suspected source of infection? No. Patient's initial sepsis screen is negative. Risk Assessment: Do you want to hurt yourself or someone else? Patient reports no desire to harm self or others. Onset of symptoms was December 21, 2021 at 09:00. 12:31 Method Of Arrival: Ambulatory ab2 12:31 Acuity: KEVIN 3 ab2 Historical: - Allergies: 12:43 No Known Allergies; ab2 - Home Meds: 12:43 None [Active]; ab2 - PMHx: 12:43 None; ab2 - Immunization history:: Adult Immunizations up to date, Client reports receiving the 2nd dose of the Covid vaccine. - Social history:: Smoking status: Patient/guardian denies using tobacco, Patient/guardian denies using alcohol, street drugs, IV drugs. Screenin:43 Abuse screen: Denies threats or abuse. Denies injuries from another. Nutritional ab2 screening: No deficits noted. Tuberculosis screening: No symptoms or risk factors identified. Fall Risk None identified. Assessment: 12:33 General: Appears in no apparent distress. comfortable, Behavior is calm, cooperative, ab2 appropriate for age. Pain: Complains of pain in left low back Pain does not radiate. Pain currently is 9 out of 10 on a pain scale. Quality of pain is described as burning, aching. Neuro: No deficits noted. Level of Consciousness is awake, alert, obeys commands, Oriented to person, place, time, situation, Appropriate for age Radiologic Electronic Specialist are equal bilaterally Moves all extremities. Gait is steady, Speech is normal, Facial symmetry appears normal. Cardiovascular: Denies chest pain, shortness of breath, Heart tones S1 S2 present Patient's skin is warm and dry. Chest pain is denied. Respiratory: Airway is patent Breath sounds are clear bilaterally. GI: Abdomen is round non-distended, Bowel sounds present X 4 quads. Abd is soft and non tender Reports flank pain. : Reports pain in left flank(s). : Denies burning with urination, inability to void, urinary frequency, urgency. EENT: No deficits noted. No signs and/or symptoms were reported regarding the EENT system. Derm: No deficits noted. No signs and/or symptoms reported regarding the dermatologic system. Musculoskeletal: No deficits noted. No signs and/or symptoms reported regarding the musculoskeletal system. Vital Signs: 12:31 BP 150 / 102; Pulse 86; Resp 17 S; Temp 98.3(O); Pulse Ox 100% on R/A; Weight 77.11 kg; ab2 Height 5 ft. 2 in. (157.48 cm); Pain 9/10; 13:27 BP 134 / 88; Pulse 81; Resp 16; Pulse Ox 100% on R/A; ab2 14:20 BP 123 / 81; Pulse 80; Resp 16; Pulse Ox 100% ; ab2 15:20 BP 142 / 84; Pulse 80; Resp 16; Pulse Ox 100% on R/A; Pain 8/10; ab2 16:22 BP 139 / 82; Pulse 89; Resp 16; Pulse Ox 98% on R/A; ab2 12:31 Body Mass Index 31.09 (77.11 kg, 157.48 cm) ab2 ED Course: 12:23 Patient arrived in ED. ds1 12:26 Baltazar Dhillon is Primary Nurse. ab2 12:27 Wade Rivera PA is PHCP. jmm 12:27 Mumtaz Armijo MD is Attending Physician. jmm 12:33 Triage completed. ab2 12:44 Arm band placed on right wrist. ab2 12:44 Patient has correct armband on for positive identification. Bed in low position. Call ab2 light in reach. Side rails up X2. 12:44 No provider procedures requiring assistance completed. ab2 12:45 Initial lab(s) drawn, by me, sent to lab. Inserted saline lock: 20 gauge in left kj1 antecubital area, using aseptic technique. Blood collected. 12:48 COVID-19/FLU A+B (Document "Date of Onset" if Symptomatic) Sent. kj1 12:51 CBC with Diff Sent. ab2 12:51 Basic Metabolic Panel Sent. ab2 12:51 COVID-19/FLU A+B (Document "Date of Onset" if Symptomatic) Sent. ab2 12:51 Hepatic Function Sent. ab2 12:51 Lipase Sent. ab2 14:35 CT Stone Protocol In Process Unspecified. EDMS 16:07 Ish Eason MD is Referral Physician. m 16:23 IV discontinued, intact, bleeding controlled, No redness/swelling at site. Pressure ab2 dressing applied. Administered Medications: 13:04 Drug: Zofran (Ondansetron) 4 mg Route: IVP; Site: left antecubital; ab2 16:22 Follow up: Response: No adverse reaction ab2 13:05 Drug: NS 0.9% 1000 ml Route: IV; Rate: 1 bolus; Site: left antecubital; ab2 16:22 Follow up: Response: No adverse reaction; IV Status: Completed infusion ab2 13:05 Drug: morphine 4 mg Route: IVP; Site: left antecubital; ab2 16:22 Follow up: Response: No adverse reaction ab2 16:22 Drug: Flomax (tamsulosin) 0.4 mg Route: PO; ab2 16:22 Follow up: Response: No adverse reaction ab2 16:22 Drug: Ketorolac 30 mg Route: IM; Site: left deltoid; ab2 16:22 Follow up: Response: No adverse reaction ab2 Outcome: 16:07 Discharge ordered by . jmm 16:23 Discharged to home ambulatory. ab2 16:23 Condition: good 16:23 Discharge instructions given to patient, Instructed on discharge instructions, follow up and referral plans. medication usage, Demonstrated understanding of instructions, follow-up care, medications, Prescriptions given X 3. 16:23 Patient left the ED. ab2 Signatures: Dispatcher [employer] EDMS Wade Rivera PA PA jmm Sanford, Demi ds1 Katie Arreguin1 Baltazar Dhillon ab2
--- NOTE | 2021-12-21 16:08 | EDPHYS ---
Physician Documentation [facility] Name: Anushka Rogel Age: 46 yrs Sex: Female : 1975 Arrival Date: 12/21/2021 Time: 12:23 Bed 28 Private MD: FLY Physician Mumtaz Armijo HPI: 12/21 13:08 This 46 yrs old Female presents to ER via Ambulatory with complaints of jmm Nausea/Vomiting. 13:08 Onset: The symptoms/episode began/occurred gradually, this morning. jmm 13:08 Possible causes: unknown. This is a 46-year-old female with no chronic medical jmm conditions presents emerged part with left flank pain beginning earlier today along with multiple episodes of vomiting. Patient states she has felt similar episodes in the past with previous kidney stones. Denies fever or diarrhea. Historical: - Allergies: 12:43 No Known Allergies; ab2 - Home Meds: 12:43 None [Active]; ab2 - PMHx: 12:43 None; ab2 - Immunization history:: Adult Immunizations up to date, Client reports receiving the 2nd dose of the Covid vaccine. - Social history:: Smoking status: Patient/guardian denies using tobacco, Patient/guardian denies using alcohol, street drugs, IV drugs. ROS: 13:08 Constitutional: Negative for fever, chills, and weight loss, Cardiovascular: Negative jmm for chest pain, palpitations, and edema, Respiratory: Negative for shortness of breath, cough, wheezing, and pleuritic chest pain. 13:08 Abdomen/GI: Positive for abdominal pain, nausea and vomiting. 13:08 All other systems are negative. Exam: 13:08 Constitutional: This is a well developed, well nourished patient who is awake, alert, jmm and in no acute distress. Head/Face: atraumatic. Eyes: EOMI, no conjunctival erythema appreciated ENT: Moist Mucus Membranes Neck: Trachea midline, Supple Chest/axilla: Normal chest wall appearance and motion. Cardiovascular: Regular rate and rhythm. No edema appreciated Respiratory: Normal respirations, no respiratory distress appreciated 13:08 Skin: General appearance color normal MS/ Extremity: Moves all extremities, no obvious deformities appreciated, no edema noted to the lower extremities Neuro: Awake and alert, normal gait Psych: Behavior is normal, Mood is normal, Patient is cooperative and pleasant 13:08 Abdomen/GI: Inspection: abdomen appears normal, Bowel sounds: normal, Palpation: soft, mild abdominal tenderness, in the left lower quadrant. 13:08 Back: CVA tenderness, that is moderate, is noted on the left. Vital Signs: 12:31 BP 150 / 102; Pulse 86; Resp 17 S; Temp 98.3(O); Pulse Ox 100% on R/A; Weight 77.11 kg; ab2 Height 5 ft. 2 in. (157.48 cm); Pain 9/10; 13:27 BP 134 / 88; Pulse 81; Resp 16; Pulse Ox 100% on R/A; ab2 14:20 BP 123 / 81; Pulse 80; Resp 16; Pulse Ox 100% ; ab2 15:20 BP 142 / 84; Pulse 80; Resp 16; Pulse Ox 100% on R/A; Pain 8/10; ab2 16:22 BP 139 / 82; Pulse 89; Resp 16; Pulse Ox 98% on R/A; ab2 12:31 Body Mass Index 31.09 (77.11 kg, 157.48 cm) ab2 MDM: 12:56 Patient medically screened. [facility] 16:06 Data reviewed: vital signs, nurses notes. Counseling: I had a detailed discussion with luna the patient and/or guardian regarding: the historical points, exam findings, and any diagnostic results supporting the discharge/admit diagnosis, lab results, radiology results, the need for outpatient follow up, to return to the emergency department if symptoms worsen or persist or if there are any questions or concerns that arise at home. ED course: Patient patient is alert and nontoxic in appearance in the ED. No signs of sepsis. CT reveals a 5 mm stone in the left ureter. Patient advised to follow-up with urology given strict return precautions. Patient understood agrees plan of care.. 12/21 12:45 Order name: Basic Metabolic Panel; Complete Time: 13:37 ab2 12/21 12:45 Order name: CBC with Diff; Complete Time: 13: ab2 12/21 12:45 Order name: Hepatic Function; Complete Time: 13:37 ab2 12/21 12:45 Order name: Lipase; Complete Time: 13: ab2 12/21 12:46 Order name: COVID-19/FLU A+B (Document "Date of Onset" if Symptomatic); Complete Time: ab2 14:13 12/21 14:08 Order name: Urine Dipstick-Ancillary; Complete Time: 14:13 EDMS 12/21 12:45 Order name: IV Saline Lock; Complete Time: 12:48 ab2 12/21 14:09 Order name: Urine --Ancillary (enter results); Complete Time: 14:53 bd 12/21 14:23 Order name: CT Stone Protocol; Complete Time: 14:53 [facility] 12/21 12:45 Order name: Labs collected and sent; Complete Time: 12:48 ab2 12/21 13:08 Order name: Urine Dipstick-Ancillary (obtain specimen); Complete Time: 14:08 [facility] 12/21 13:08 Order name: Urine Test (obtain specimen); Complete Time: 14:08 [facility] Administered Medications: 13:04 Drug: Zofran (Ondansetron) 4 mg Route: IVP; Site: left antecubital; ab2 16:22 Follow up: Response: No adverse reaction ab2 13:05 Drug: NS 0.9% 1000 ml Route: IV; Rate: 1 bolus; Site: left antecubital; ab2 16:22 Follow up: Response: No adverse reaction; IV Status: Completed infusion ab2 13:05 Drug: morphine 4 mg Route: IVP; Site: left antecubital; ab2 16:22 Follow up: Response: No adverse reaction ab2 16:22 Drug: Flomax (tamsulosin) 0.4 mg Route: PO; ab2 16:22 Follow up: Response: No adverse reaction ab2 16:22 Drug: Ketorolac 30 mg Route: IM; Site: left deltoid; ab2 16:22 Follow up: Response: No adverse reaction ab2 Disposition: 12/22 08:31 Co-signature as Attending Physician, Mumtaz Armijo MD I agree with the assessment and amy plan of care. Disposition Summary: 12/21/21 16:07 Discharge Ordered Location: Home [facility] Condition: Stable [facility] Diagnosis - Calculus of ureter [facility] Followup: [facility] - With: Ish Eason MD - When: 2 - 3 days - Reason: Recheck today's complaints, Continuance of care, Re-evaluation by your physician Discharge Instructions: - Discharge Summary Sheet [facility] - Kidney Stones [facility] Forms: - Medication Reconciliation Form [facility] - Thank You Letter [facility] - Antibiotic Education [facility] - Prescription Opioid Use [facility] Prescriptions: - ondansetron 4 mg Oral tablet,disintegrating - take 1 tablet by ORAL route every 4-6 hours for 2 days; 20 tablet; Refills: 0, [facility] Product Selection Permitted - Ultracet 37.5-325 mg Oral Tablet - take 1 tablet by ORAL route every 6 hours - for up to 5 days; do not exceed 8 [facility] tablets per day.; 20 tablet; Refills: 0, Product Selection Permitted - Flomax 0.4 mg Oral capsule - take 1 capsule by ORAL route once daily 1/2 hour following the same meal each [facility] day; 30 capsule; Refills: 0, Product Selection Permitted Signatures: Dispatcher [employer] Mumtaz Anton MD MD cha Mickail, Joel, PA PA Baltazar Bravo
[2021-12-21] MEDS ORDERED: TAMSULOSIN 0.4 MG SR CAP ONE (16:18)
[2021-12-21] MEDS ORDERED: KETOROLAC 30 MG/ML INJ ONE (16:18)
[2021-12-21 16:59] VITALS: TEMP 98.3
[2021-12-21 17:05] VITALS: BP 139/82; O2SAT 98
== END 2021-12-21 16:23 | disposition home or self-care (01) ==
LOC: ER 12:20
DX: N20.1 Calculus of ureter (principal); Z20.822 Contact with and (suspected) exposure to COVID-19
CPT/HCPCS: 96361; 85025; 80048; 36415; 81025; 80076; 81003; 83690; 0240U; 76377; 74176; 96375; 96372; 96374; 99284; J7030; J2405